=== PATIENT | female | born 1945 | race African-American/Black ===

== ENCOUNTER 2017-05-28 12:12 | Emergency (ER) | payer MEDICARE, OTHER ==
--- NOTE | 2017-05-28 13:22 | ULT ---
LEFT LOWER EXTREMITY VENOUS DOPPLER: HISTORY: Pain. COMPARISON: Left lower extremity venous Doppler 10/28/15. FINDINGS: Real-time, lindquist scale, color Doppler with spectral analysis of the left lower extremity venous system was performed through the common femoral, femoral, proximal portion of greater saphenous and deep fe moral veins as well as popliteal and posterior tibial veins. Normal flow, augmentation, and compression. IMPRESSION: No deep venous thrombosis of the left lower extremity. POS: KAITLIN
== END 2017-05-28 13:50 | disposition home or self-care (01) ==
LOC: SCSER 12:12
DX: M79.662 Pain in left lower leg (principal); E78.5 Hyperlipidemia, unspecified; E03.9 Hypothyroidism, unspecified; I10 Essential (primary) hypertension; Z79.899 Other long term (current) drug therapy

== ENCOUNTER 2017-11-13 11:11 | Outpatient (CLI) | payer MEDICARE | END 2017-11-13 11:12 | disposition home or self-care (01) | LOC: BICMAMMO 11:11 | PROVIDERS: ATTEND Physician Assistant | DX: Z12.31 Encounter for screening mammogram for malignant neoplasm of breast (principal) | CPT/HCPCS: 77063; 77067 ==

== ENCOUNTER 2018-03-11 00:21 | Observation (INO) | payer MEDICARE ==
[2018-03-11] MEDS ORDERED: Dexamethasone 10 MG/ML VIAL ONE (00:34)
[2018-03-11] MEDS ORDERED: Famotidine/PF 20 mg/2ml Vial ONE (00:34)
[2018-03-11] MEDS ORDERED: diphenhydrAMINE 50 MG/ML VIAL IVP SCH (00:45)
[2018-03-11 01:07] LABS: INR-International Normal Ratio 0.9; PTT 30.2 SEC (22.9-36.1); Prothrombin Time 12.1 SEC (12.0-14.7)
[2018-03-11 01:19] LABS: #Eosinphils 0.1 thou/uL (0.0-0.7); #Lymphocytes 2.2 thou/uL (1.20-3.40); #Monocytes 0.8 thou/uL (0.11-0.59); #Neutrophils 5.6 thou/uL (1.40-6.50); %Basophils 0.6 % (0.0-1.0); %Eosinophils 1.5 % (0.0-10.0); %Lymphocytes 25.2 % (21.0-51.0); %Monocytes 9.2 % (0.0-10.0); %Neutrophils 63.5 % (42.0-75.0); Anisocytosis SLIGHT = 6-15 cells (100X) (0-5/hpf); Elliptocytes SLIGHT = 2-5 cells (100X) (0-1/hpf); Hemoglobin 12.5 g/dL (12.0-16.0); MDiff Complete? YES; Mean Corpuscular HGB CONC 30.8 g/dL (32.0-36.0); Mean Corpuscular Hemoglobin 21.2 pg (27.0-31.0); Mean Corpuscular Volume 68.7 fL (78.0-98.0); Mean Platelet Volume 6.1 fL (7.4-10.4); Microcytosis SLIGHT = 6-15 cells (100X) (0-5/hpf); Platelet Count 261 thou/uL (130-400); RBC Distribution Width 17.9 % (11.5-14.5); Red Blood Cell (RBC) Count 5.88 mill/uL (4.20-5.40); White Blood Cell (WBC) Count 8.8 thou/uL (4.8-10.8)
[2018-03-11 01:37] LABS: ALT (SGPT) Less than 7 U/L (8-55); AST (SGOT) 12 U/L (5-34); Alkaline Phosphatase 53 U/L (40-150); Anion Gap 12 mmol/L (10-20); BUN (Urea Nitrogen) 17 mg/dL (9.8-20.1); Bilirubin, Total 0.3 mg/dL (0.2-1.2); Calc. Creatinine Clearance 0 mL/min (70-130); Calcium 9.5 mg/dL (7.8-10.44); Carbon Dioxide 27 mmol/L (23-31); Chloride 106 mmol/L (98-107); Estimated GFR-MDRD 70; Globulin 2.8 g/dL (2.4-3.5); Glucose 83 mg/dL (83-110); Protein, Total 6.8 g/dL (6.0-8.3); Sodium 141 mmol/L (136-145)
[2018-03-11] MEDS ORDERED: Ondansetron HCl/PF 4 MG/2 ML Vial IVP PRN (02:56)
[2018-03-11 03:23] LABS: Lavender RECEIVED; Red RECEIVED
[2018-03-11] MEDS ORDERED: Dextrose 50% Abboject 50 ML SYRINGE SLOW IVP PRN (03:26)
[2018-03-11] MEDS ORDERED: Dextrose 5% in Water 1,000 ML IV PRN (03:26)
[2018-03-11 04:05] VITALS: BMI 43.7
[2018-03-11] MEDS: Acetaminophen 325 MG TAB PO PRN ×2 (04:12→09:55)
--- NOTE | 2018-03-11 04:22 | HP ---
CHIEF COMPLAINT: "My lip is swollen." HISTORY OF PRESENT ILLNESS: This is a 73-year-old female with past medical history of angioedema, bi lateral pulmonary embolism, left leg deep vein thrombosis, history of hypertension, hyperlipidemia, h ypothyroidism, asthma, presenting with upper lip swollen and edema. Per the patient, she went to [facility] 2 days prior to her admission and patient states that she ate some crab and some fish at [facility], but per the patient, she did not have any reaction and on the day of admission, patient stated that she woke up and noted that she had upper lip edema and swelling and patient was starting to feel like this was one of her episodes of angioedema, so the patient took 2 doses of Benadryl. T he patient stated that she has not used anything different in the past couple of days. The patient h as not changed her medications in the past couple of days as well. The patient states that she tends to have this angioedema every now and then. Per the patient and her records in 2012, the patient aranda d facial edema and on 09/21/2015, patient had severe acute angioedema with respiratory complication, needing a trach and on 09/15/2016, patient also had another episode of angioedema in the throat of [facility]. Patient states that angioedema runs through her family, her nephew takes miguelina nopril, he gets angioedema and states that also the mother tends to also get angioedema as well. Per the patient, currently she is not having any difficulty with her breathing. She is not having any s hortness of breath and any tongue swelling or itchiness in the throat. Patient states that she is fe eling well and after she took 2 dose of Benadryl, everything started to resolve. REVIEW OF SYSTEMS: Positive for upper lip swollen, otherwise as documented in the HPI, all other sys tems were reviewed and were negative. PAST MEDICAL HISTORY: Bilateral pulmonary embolism in 2016, deep venous thrombosis, status post Xare lto, history of anemia, hypertension, hyperlipidemia, hypothyroidism, history of angioedema, diabetes mellitus type 2, asthma, morbid obesity. FAMILY HISTORY: Family history of angioedema. PAST SURGICAL HISTORY: Small-bowel obstruction in 2016, status post tracheostomy in the past. SOCIAL HISTORY: The patient denies ethanol use, smoking, or illicit drug use. Patient is a retired teacher. There are 7 sisters all together. ALLERGIES: The patient is allergic to CODEINE, SHELLFISH, and PROMETHAZINE. MEDICATIONS: The patient is on levothyroxine 100 mcg, fluvastatin, metoprolol XL 50 mg, glipizide 5 mg, Flexeril 10 mg. PHYSICAL EXAMINATION: VITAL SIGNS: Blood pressure is 168/97, heart rate is 70, respiratory rate of 18, temperature of 98.1 , O2 sat is 97 on room air. GENERAL: Patient is speaking in full sentences, does not appear to be in any distress. The patient is maintaining her airway, alert and oriented x3. HEENT: Normocephalic, atraumatic. Pupils are equally round and reactive to light. Extraocular move ments are intact. No scleral icterus. Mucous membranes are moist. NECK: Supple. No JVDs. No edema noted at the neck. No erythema, no rashes. Patient do have swoll en upper lip. LUNGS: Clear to auscultation bilaterally. No wheezing, no rales, no rhonchus appreciated. CARDIOVASCULAR: Positive S1, S2. Regular rate and rhythm. No murmurs, no gallops, no rubs apprecia myla. ABDOMEN: Nondistended, nontender. Positive bowel sounds in all quadrants. No ecchymosis, no masses palpated. EXTREMITIES: The patient has 5/5 upper extremity strength and 5/5 lower extremity strength, good pul ses bilaterally in upper and lower extremities. No edema noted. NEUROLOGIC: Cranial nerves II through XII grossly intact. No neurologic deficit noted. PSYCHIATRIC: Normal affect. Alert and oriented x3. SKIN: Warm, dry, and intact. Patient's lip swelling. There are no rashes noted. LABORATORY DATA: Sodium 141, potassium is 4.0, chloride 106, carbon dioxide 27, anion gap of 12, BUN is 17, creatinine is 0.94, glucose of 83, AST 12, ALT less than 7. CBC: WBC is 8.8, hematocrit is 40.4, hemoglobin of 12.5, MCV is 68.7, RDW of 17.9, PTT is 30.2, INR is 0.9. ASSESSMENT AND PLAN: This is a 73-year-old female with past medical history significant for micaela figueredo, has been admitted for; 1. Angioedema of the lip. At this point, the patient has received Benadryl and steroids. We will m onitor the patient on telemetry floor. The patient does not appear to be in any distress at this minnie e. There was no edema noted in the throat and the patient has good airway. Upon reviewing charts fr om the past, the patient do have a CRP that was 1.23, C3 level that was 191, and C4 level of 46, and C1 esterase function was 107, which rules out hereditary angioedema. Therefore, since patient is hav ing recurrent histories of angioedema and patient has family history of angioedema. We are suspectin g that the patient probably do have idiopathic angioedema. Since the patient's workup in the past aranda ve not shown the patient do have hereditary angioedema. At this point, we have encouraged the patien t to follow up with director drug safety for further workup for any allergic reactions and also for patient t o be managed outpatient for her history of recurrent angioedema. At this point, we will continue sup portive care. We will continue to monitor the patient. 2. Diabetes mellitus type 2, controlled. We will continue patient on insulin sliding scale. 3. Hyperlipidemia. Currently, we are going to hold the patient's home medication. We will start pa tient medications once the patient's medications have been verified. 4. History of hypertension. We will continue patient on home medications once it is confirmed and v erified. 5. Hypothyroidism. We will start patient on levothyroxine. 6. Deep venous thrombosis and gastrointestinal prophylaxis. We will encourage ambulation, sequentia l compression devices. We will give Pepcid for gastrointestinal prophylaxis.
[2018-03-11] MEDS: Levothyroxine Sodium 100 MCG TAB PO SCH (06:01)
[2018-03-11] MEDS ORDERED: Enoxaparin Sodium 40 MG/0.4 ML SYRINGE SC SCH (09:00)
[2018-03-11] MEDS ORDERED: predniSONE 20 MG TAB PO SCH (09:00)
[2018-03-11] MEDS: diphenhydrAMINE 25 MG CAP PO SCH ×3 (09:55→20:39)
[2018-03-11] MEDS: Famotidine 20 MG TAB PO SCH ×2 (09:55→20:40)
[2018-03-11] MEDS: HumaLOG 300 UNITS/3 ML VIAL SC PRN ×2 (11:45→20:41)
--- NOTE | 2018-03-11 17:51 | CON ---
DATE OF CONSULTATION: 03/11/2018 SERVICE: Pulmonary Medicine. REASON FOR CONSULTATION: Angioedema. HISTORY OF PRESENT ILLNESS: Patient is a 73-year-old -[place] female who was going through multiple life stressors currently. Either way, she was in her usual state of health when she had the abrupt onset of changes in the mouth. She started feeling upper lip swelling. She presented to the Emergency Department because of her history of severe angioedema requiring tracheostomy. She denies any current fevers, chills, nausea, vomiting or chest discomfort. She already feels that the lip swelling is improving to some degree. She has been on antihistamines, and steroids starting last night. PAST MEDICAL HISTORY: 1. Pulmonary embolism, bilateral. 2. History of deep venous thrombosis. 3. Hypertension. 4. Dyslipidemia. 5. Hypothyroidism. 6. Type 2 diabetes mellitus. 7. Morbid obesity. 8. Angioedema. PAST SURGICAL HISTORY: 1. Small-bowel obstruction in 2016. 2. History of tracheostomy, status post decannulation in 2016 for severe angioedema event. SOCIAL HISTORY: Negative for alcohol, tobacco or illicit drug use. She has no exposure to chemicals, dust asbestos or tuberculosis. FAMILY HISTORY: Positive for angioedema. ALLERGIES: Include CODEINE, SHELLFISH, PHENERGAN. MEDICATIONS: List of her inpatient medications were reviewed. No specific updates were made at this time. REVIEW OF SYSTEMS: General, head, ears, eyes, nose, throat, cardiovascular, respiratory, GI, , musculoskeletal, neurologic and skin is negative except as mentioned in the HPI. PHYSICAL EXAMINATION: VITAL SIGNS: Afebrile, pulse 81, blood pressure 147/67, respirations 18, saturation 97% on room air. GENERAL: The patient is awake, alert, no apparent distress. LUNGS: Excellent air entry. There is no prolonged expiratory phase, wheezing, rhonchi, or crackles present. HEENT: Normocephalic, atraumatic. Sclerae are white, conjunctivae pink. Oral mucosa is moist without lesions. I see no evidence of swollen tongue, lips, or posterior oropharynx. HEART: Normal rate, regular. ABDOMEN: Soft, nontender, nondistended. Bowel sounds are positive. MUSCULOSKELETAL: No cyanosis or clubbing. There is no pitting in the bilateral lower extremities. NEUROLOGIC: Grossly nonfocal. LABORATORY DATA: WBC 8.8, hemoglobin 12.5, platelets 261,000. INR was 0.9. Basic metabolic profile and liver function studies are unremarkable. CRP 1.07, minimally elevated. ASSESSMENT: 1. Angioedema without hypotension, resolving. 2. History of deep venous thrombosis/pulmonary embolus, status post full course of anticoagulation. DISCUSSION AND PLAN: At this point, the patient essentially has returned to baseline. From my perspective, she is stable for transition out of the hospital. She has multiple life stressors that she feels may have contributed to this presentation. On discharge from the hospital, she will need to follow up with her load planner. Pulmonary will follow if she remains inhouse, but from my perspective she will be a candidate for transition home tomorrow. VESTA
[2018-03-11] MEDS ORDERED: HumaLOG 300 UNITS/3 ML VIAL SC PRN (22:43)
[2018-03-11] MEDS ORDERED: glipiZIDE 5 MG TAB PO SCH (23:15)
[2018-03-12] MEDS: Levothyroxine Sodium 100 MCG TAB PO SCH (06:00)
[2018-03-12] MEDS ORDERED: glipiZIDE 5 MG TAB PO SCH (07:30)
[2018-03-12] MEDS ORDERED: predniSONE 20 MG TAB PO SCH (08:00)
[2018-03-12] MEDS: Famotidine 20 MG TAB PO SCH (08:04)
[2018-03-12] MEDS: diphenhydrAMINE 25 MG CAP PO SCH ×2 (08:04→14:16)
[2018-03-12] MEDS: metFORMIN 500 MG TAB PO SCH ×2 (08:04→11:43)
[2018-03-12] MEDS ORDERED: Labetalol HCl 100 MG/20 ML VIAL SLOW IVP PRN (08:34)
[2018-03-12] MEDS ORDERED: cloNIDine 0.1 MG TAB PO PRN (08:34)
[2018-03-12] MEDS ORDERED: Aspirin 81 mg Enteric Coated Tablet PO SCH (09:00)
[2018-03-12] MEDS ORDERED: Amlodipine 5 MG TAB PO SCH ×2 (11:15→21:00)
[2018-03-12 11:59] VITALS: TEMP 97.9
[2018-03-12 12:55] VITALS: BP 153/80
[2018-03-12] MEDS: Acetaminophen 325 MG TAB PO PRN (14:17)
--- NOTE | 2018-03-12 17:45 | PRG ---
DATE OF SERVICE: 03/12/2018 SERVICE: Pulmonary Medicine. INTERVAL HISTORY: The patient is doing absolutely wonderful from a respiratory standpoint. Denies a ny current chest pain, nausea, vomiting, fevers or chills. Otherwise, there has been no interval korey nge to her condition. She indicates the lip swelling is no longer present. She is certainly breathi ng comfortably and did not have any events overnight. PHYSICAL EXAMINATION: VITAL SIGNS: Afebrile, pulse 65, blood pressure 166/87, respirations 20, saturation 95% on room air. GENERAL: The patient is awake and alert, in no apparent distress. LUNGS: Excellent air entry. There is no prolonged expiratory phase or wheezing present. HEART: Normal rate, regular. ABDOMEN: Soft, nontender, nondistended. Bowel sounds are positive. MUSCULOSKELETAL: No cyanosis or clubbing. There is no pitting in the bilateral lower extremities. NEUROLOGIC: Grossly nonfocal. LABORATORY DATA: Blood sugars ranged from 73 to 308. ASSESSMENT: 1. Angioedema without hypotension. 2. History of deep vein thrombosis/pulmonary embolism, status post full course of anticoagulation. DISCUSSION AND PLAN: The patient remains stable for transition out of the hospital. At this point, she has no further requirements for inpatient Pulmonary or Critical Care opinion and I will sign off. She will need follow up with her beef grinder in the outpatient setting. She will need an appropriate duration of steroids and antihistamines.
--- NOTE | 2018-03-13 13:58 | DIS ---
DATE OF DISCHARGE: 03/12/2018 DISCHARGE DISPOSITION: Home. FOLLOWUP: 1. Follow up with Kia Plasencia in 1 week. 2. Follow up with car spotter, Dr. Osmar Loera, in 1 week. ALLERGIES: The patient is allergic to CODEINE, PHENERGAN, and SHELLFISH. The patient was seen and examined on the day of discharge. Denies any new complaints. No chest pain , shortness of breath, palpitations. Facial swelling has significantly improved. BRIEF HOSPITAL COURSE: The patient is a 73-year-old female with angioedema in the past, presented to the hospital with lip swelling. Please refer to the history and physical dated 03/11/[address] Chelsi stallings for further details. The patient was admitted to the hospital with a diagnosis of angioedema of the lip. She was started on H1 and H2 blockers along with steroids. She showed good improvement. The patient was evaluated b y Pulmonary, Dr. Mike. She did well overnight. She has been cleared by Dr. Mike for discharge . She was advised to follow up with her primary car spotter, Dr. Loera, as outpatient. FINAL DIAGNOSES: 1. Angioedema. 2. Diabetes mellitus, type 2. 3. Hypertension. 4. Hyperlipidemia. 5. Hypothyroidism. 6. Morbid obesity with a BMI of 43.6. 7. Chronic kidney disease, stage 2. DIAGNOSTIC TESTS: CRP 1.07, creatinine 0.94, hemoglobin 12.5.
== END 2018-03-12 15:55 | disposition home or self-care (01) ==
LOC: ERS 00:21 → 2NO 01:32 → INTOOBSV 01:32
PROVIDERS: ADMIT Internal Medicine; ATTEND Internal Medicine
DX: T78.3XXA Angioneurotic edema, initial encounter (principal); E78.5 Hyperlipidemia, unspecified; E03.9 Hypothyroidism, unspecified; I12.9 Hypertensive chronic kidney disease with stage 1 through stage 4 chronic kidney disease, or unspecified chronic kidney disease; E11.22 Type 2 diabetes mellitus with diabetic chronic kidney disease; N18.2 Chronic kidney disease, stage 2 (mild); E66.01 Morbid (severe) obesity due to excess calories; Z68.41 Body mass index [BMI] 40.0-44.9, adult; Z88.5 Allergy status to narcotic agent; Z91.013 Allergy to seafood; Z79.84 Long term (current) use of oral hypoglycemic drugs; Z79.899 Other long term (current) drug therapy
CPT/HCPCS: 80053; 82962 ×2; 85025; 85610; 85730; 86140; 86850; 86900; 86901; 96372; 96374; 96375; 99284; G0378; 36415; 36416; J1100; J1200; J1650; J7506; S0028

== ENCOUNTER 2018-05-14 10:53 | Emergency (ER) | payer MEDICARE ==
[2018-05-14 15:16] LABS: Anion Gap 11 mmol/L (10-20); BUN (Urea Nitrogen) 13 mg/dL (9.8-20.1); Calc. Creatinine Clearance 0 mL/min (70-130); Calcium 9.4 mg/dL (7.8-10.44); Carbon Dioxide 28 mmol/L (23-31); Chloride 105 mmol/L (98-107); Estimated GFR-MDRD 87; Glucose 76 mg/dL (83-110); Potassium 4.2 mmol/L (3.5-5.1); Sodium 140 mmol/L (136-145)
--- NOTE | 2018-05-16 13:54 | EKG ---
Test Reason : Blood Pressure : / mmHG Vent. Rate : 065 BPM Atrial Rate : 065 BPM P-R Int : 226 ms QRS Dur : 076 ms QT Int : 392 ms P-R-T Axes : 000 -43 022 degrees QTc Int : 407 ms Sinus rhythm with 1st degree A-V block Left axis deviation Abnormal ECG Confirmed by JOAO NAIK ([id number]), material expeditor FREDO CASTILLO ([id number]) on 05/16/2018 1:54:28 PM Referred By: Confirmed By:JOAO NAIK
== END 2018-05-14 15:39 | disposition home or self-care (01) ==
LOC: ERS 10:53
DX: I10 Essential (primary) hypertension (principal); E78.5 Hyperlipidemia, unspecified; E03.9 Hypothyroidism, unspecified; Z79.899 Other long term (current) drug therapy
CPT/HCPCS: 36415; 80048; 84484; 93005

== ENCOUNTER 2019-03-25 11:39 | Outpatient (CLI) | payer MEDICARE ==
--- NOTE | 2019-03-25 12:37 | MMO ---
Bilateral MAMMO Bilat Screen [facility]. CLINICAL HISTORY: Patient is 74 years old and is seen for screening. The patient has no family history of breast cancer. The patient has no personal history of cancer. VIEWS: The views performed were: bilateral craniocaudal; bilateral craniocaudal with tomosynthesis; bilateral mediolateral oblique; and bilateral mediolateral oblique with tomosynthesis. FILMS COMPARED: The present examination has been compared to prior imaging studies performed at [facility] on 01/14/2013, 06/20/2014, 07/27/2015 and 11/13/2017. This study has been interpreted with the assistance of computer-aided detection. MAMMOGRAM FINDINGS: The breasts are almost entirely fat. There are no suspicious masses, suspicious calcifications, or new areas of architectural distortion. IMPRESSION: THERE IS NO MAMMOGRAPHIC EVIDENCE OF MALIGNANCY. A ROUTINE FOLLOW-UP MAMMOGRAM IN 1 YEAR IS RECOMMENDED. THE RESULTS OF THIS EXAM WERE SENT TO THE PATIENT. ACR BI-RADS Category 1 - Negative MAMMOGRAPHY NOTE: 1. A negative mammogram report should not delay a biopsy if a dominant of clinically suspicious mass is present. 2. Approximately 10% to 15% of breast cancers are not detected by mammography. 3. Adenosis and dense breasts may obscure an underlying neoplasm. Reported by: DEMARCUS MILLS MD Electonically Signed: [id number]
== END 2019-03-25 11:40 | disposition home or self-care (01) ==
LOC: BICMAMMO 11:39
PROVIDERS: ATTEND Physician Assistant
DX: Z12.31 Encounter for screening mammogram for malignant neoplasm of breast (principal)
CPT/HCPCS: 77063; 77067

== ENCOUNTER 2019-05-07 13:06 | Emergency (ER) | payer MEDICARE ==
[2019-05-07] MEDS ORDERED: predniSONE 20 MG TAB ONE (13:45)
== END 2019-05-07 15:09 | disposition home or self-care (01) ==
LOC: ERS 13:06
DX: T78.40XA Allergy, unspecified, initial encounter (principal); E78.5 Hyperlipidemia, unspecified; E78.00 Pure hypercholesterolemia, unspecified; I10 Essential (primary) hypertension; E03.9 Hypothyroidism, unspecified; Z79.899 Other long term (current) drug therapy
CPT/HCPCS: 99283; J7512

== ENCOUNTER 2020-06-13 13:56 | Outpatient (CLI) | payer MEDICARE ==
[~2020-06-13 13:56] MED LIST: Iopamidol 370 76% 100 ML VIAL ONE
--- NOTE | 2020-06-13 15:33 | CT ---
CT ABDOMEN AND PELVIS WITH ORAL AND IV CONTRAST: 06/13/20 HISTORY: Left lower quadrant pain. Abdominal pain, periumbilical. Constipation. Perianal pain. Umbilical herni a. The lung bases are unremarkable. The liver, spleen, pancreas and adrenal glands are normal. No calcif ied gallstones are seen. Bilateral renal cysts are again seen. No free air, free fluid or lymphadenopathy are seen in the abdomen or pelvis. The patient is post hys terectomy. There are vascular calcifications without evidence of aneurysmal dilatation of the abdomin al aorta. There are degenerative changes in the spine. The small bowel loops are not abnormally dilated. There are postop changes in the anterior abdominal wall. A lower anterior abdominal wall hernia is seen containing fat and unobstructed loop of transver se colon. IMPRESSION: 1. Bilateral renal cysts. 2. Lower anterior abdominal wall hernia containing fat and unobstructed loop of transverse colon. POS: OFF
== END 2020-06-13 13:57 | disposition home or self-care (01) ==
LOC: BICCT 13:56
PROVIDERS: ATTEND Physician Assistant Medical
DX: K42.9 Umbilical hernia without obstruction or gangrene (principal); R10.32 Left lower quadrant pain; R10.33 Periumbilical pain; K59.00 Constipation, unspecified; R10.2 Pelvic and perineal pain; N28.1 Cyst of kidney, acquired; K43.9 Ventral hernia without obstruction or gangrene
CPT/HCPCS: 74177; 82565

== ENCOUNTER 2020-10-19 11:10 | Outpatient (CLI) | payer MEDICARE | END 2020-10-19 11:11 | disposition home or self-care (01) | LOC: BICMAMMO 11:10 | PROVIDERS: ATTEND Physician Assistant | DX: Z12.31 Encounter for screening mammogram for malignant neoplasm of breast (principal) | CPT/HCPCS: 77063; 77067 ==

== ENCOUNTER 2020-11-02 15:17 | Emergency (ER) | payer MEDICARE ==
[2020-11-02] MEDS ORDERED: EPINEPHrine 1 MG/ML VIAL ONE (15:51)
[2020-11-02] MEDS ORDERED: Famotidine/PF 20 mg/2ml Vial ONE (15:51)
[2020-11-02] MEDS ORDERED: Tranexamic Acid 1,000 MG/10 ML VIAL ONE (15:51)
[2020-11-02] MEDS ORDERED: methylPREDNISolone Sod Succ/PF 125 MG/2 ML VIAL ONE (15:51)
[2020-11-02 16:36] LABS: #Basophils 0.1 thou/uL (0.0-0.2); #Eosinphils 0.1 thou/uL (0.0-0.7); #Lymphocytes 4.4 thou/uL (1.20-3.40); #Monocytes 1.1 thou/uL (0.11-0.59); #Neutrophils 6.3 thou/uL (1.40-6.50); %Basophils 0.8 % (0.0-1.0); %Eosinophils 1.1 % (0.0-10.0); %Lymphocytes 36.4 % (21.0-51.0); %Monocytes 9.1 % (0.0-10.0); %Neutrophils 52.6 % (42.0-75.0); Hemoglobin 13.9 g/dL (12.0-16.0); Mean Corpuscular HGB CONC 30.9 g/dL (32.0-36.0); Mean Corpuscular Hemoglobin 21.5 pg (27.0-31.0); Mean Corpuscular Volume 69.4 fL (78.0-98.0); Mean Platelet Volume 6.9 fL (7.4-10.4); Platelet Count 294 thou/uL (130-400); RBC Distribution Width 19.2 % (11.5-14.5); Red Blood Cell (RBC) Count 6.46 mill/uL (4.20-5.40)
[2020-11-02 16:54] LABS: ALT (SGPT) 8 U/L (8-55); AST (SGOT) 12 U/L (5-34); Albumin 4.1 g/dL (3.4-4.8); Alkaline Phosphatase 67 U/L (40-110); Anion Gap 12 mmol/L (10-20); BUN (Urea Nitrogen) 15 mg/dL (9.8-20.1); Bilirubin, Total 0.3 mg/dL (0.2-1.2); Calc. Creatinine Clearance 0 mL/min (70-130); Calcium 9.6 mg/dL (7.8-10.44); Carbon Dioxide 31 mmol/L (23-31); Chloride 102 mmol/L (98-107); Globulin 3.2 g/dL (2.4-3.5); Glucose 120 mg/dL (83-110); Potassium 4.6 mmol/L (3.5-5.1); Protein, Total 7.3 g/dL (5.8-8.1); Sodium 140 mmol/L (136-145)
[2020-11-02 16:54] LABS: Anisocytosis SLIGHT = 6-15 cells (100X) (0-5/hpf); Hypochromia SLIGHT = 6-15 cells (100X) (0-5/hpf); MDiff Complete? YES; Microcytosis SLIGHT = 6-15 cells (100X) (0-5/hpf); Ovalocytes SLIGHT = 2-5 cells (100X) (0-1/hpf); Platelet Morphology Comment Appears Adequate; Polychromasia SLIGHT = 2-3 cells (100X) (0-2/hpf)
== END 2020-11-02 23:13 | disposition home or self-care (01) ==
LOC: ERS 15:17
DX: D84.1 Defects in the complement system (principal); E78.00 Pure hypercholesterolemia, unspecified; I10 Essential (primary) hypertension; E03.9 Hypothyroidism, unspecified; E78.5 Hyperlipidemia, unspecified; Z79.82 Long term (current) use of aspirin; Z79.84 Long term (current) use of oral hypoglycemic drugs; Z79.899 Other long term (current) drug therapy
CPT/HCPCS: 36430; 80053; 85025; 86850; 86900; 86901; 96365; 96366; 96372; 96375; 99284; J0171; P9059; 36415; J2930; S0028

== ENCOUNTER 2021-10-16 14:17 | Outpatient (CLI) | payer MEDICARE | END 2021-10-16 14:18 | disposition home or self-care (01) | LOC: BICMAMMO 14:17 | PROVIDERS: ATTEND Registered Nurse | DX: Z13.820 Encounter for screening for osteoporosis (principal); Z78.0 Asymptomatic menopausal state | CPT/HCPCS: 77080 ==

== ENCOUNTER 2022-01-13 12:32 | Emergency (ER) | payer MEDICARE ==
[2022-01-13 14:01] LABS: #Eosinphils 0.3 thou/uL (0.0-0.7); #Lymphocytes 2.1 thou/uL (1.20-3.40); #Monocytes 0.6 thou/uL (0.11-0.59); #Neutrophils 5.9 thou/uL (1.40-6.50); %Basophils 0.3 % (0.0-1.0); %Eosinophils 3.2 % (0.0-10.0); %Lymphocytes 23.3 % (21.0-51.0); %Monocytes 7.2 % (0.0-10.0); %Neutrophils 65.9 % (42.0-75.0); Hemoglobin 13.2 g/dL (12.0-16.0); Mean Corpuscular HGB CONC 31.5 g/dL (32.0-36.0); Mean Corpuscular Hemoglobin 22.2 pg (27.0-31.0); Mean Corpuscular Volume 70.4 fL (78.0-98.0); Mean Platelet Volume 5.9 fL (7.4-10.4); Platelet Count 278 thou/uL (130-400); RBC Distribution Width 19.1 % (11.5-14.5); Red Blood Cell (RBC) Count 5.96 mill/uL (4.20-5.40); White Blood Cell (WBC) Count 8.9 thou/uL (4.8-10.8)
[2022-01-13] MEDS ORDERED: Iopamidol-370 76% 500 ML 1 ML ONE (14:05)
[2022-01-13 14:15] LABS: Anisocytosis SLIGHT = 6-15 cells (100X) (0-5/hpf); Hypochromia SLIGHT = 6-15 cells (100X) (0-5/hpf); MDiff Complete? YES; Microcytosis SLIGHT = 6-15 cells (100X) (0-5/hpf); Ovalocytes SLIGHT = 2-5 cells (100X) (0-1/hpf); Platelet Morphology Comment Appears Adequate; Polychromasia SLIGHT = 2-3 cells (100X) (0-2/hpf)
[2022-01-13 14:24] LABS: ALT (SGPT) 7 U/L (8-55); AST (SGOT) 12 U/L (5-34); Alkaline Phosphatase 62 U/L (40-110); Anion Gap 14 mmol/L (10-20); BUN (Urea Nitrogen) 13 mg/dL (9.8-20.1); Bilirubin, Total 0.3 mg/dL (0.2-1.2); Calc. Creatinine Clearance 0 mL/min (70-130); Calcium 9.4 mg/dL (7.8-10.44); Carbon Dioxide 29 mmol/L (23-31); Chloride 102 mmol/L (98-107); Estimated GFR 75; Globulin 3.3 g/dL (2.4-3.5); Glucose 93 mg/dL (83-110); Potassium 4.3 mmol/L (3.5-5.1); Protein, Total 7.3 g/dL (5.8-8.1); Sodium 141 mmol/L (136-145)
== END 2022-01-13 16:36 | disposition home or self-care (01) ==
LOC: ERS 12:32
DX: I82.402 Acute embolism and thrombosis of unspecified deep veins of left lower extremity (principal); E78.5 Hyperlipidemia, unspecified; E78.00 Pure hypercholesterolemia, unspecified; I10 Essential (primary) hypertension; E03.9 Hypothyroidism, unspecified; R73.03 Prediabetes; Z79.84 Long term (current) use of oral hypoglycemic drugs; Z79.899 Other long term (current) drug therapy
CPT/HCPCS: 36415; 71045; 71275; 80053; 83880; 84484; 85025; 93005; Q9967

== ENCOUNTER 2022-07-21 01:06 | Emergency (ER) | payer MEDICARE ==
[2022-07-21 02:19] LABS: Hemoglobin 12.5 g/dL (12.0-16.0); Mean Corpuscular HGB CONC 31.3 g/dL (32.0-36.0); Mean Corpuscular Hemoglobin 21.8 pg (27.0-31.0); Mean Corpuscular Volume 69.5 fl (78.0-98.0); Mean Platelet Volume 6.5 fL (7.4-10.4); Platelet Count 243 10x3/uL (130-400); RBC Distribution Width 17.9 % (11.5-14.5); Red Blood Cell (RBC) Count 5.72 mill/uL (4.20-5.40); White Blood Cell (WBC) Count 9.4 10x3/uL (4.8-10.8)
[2022-07-21 02:31] LABS: ALT (SGPT) Less than 7 U/L (8-55); AST (SGOT) 13 U/L (5-34); Albumin 3.9 g/dL (3.4-4.8); Alkaline Phosphatase 53 U/L (40-110); Anion Gap 12 mmol/L (10-20); BUN (Urea Nitrogen) 14 mg/dL (9.8-20.1); Bilirubin, Total 0.4 mg/dL (0.2-1.2); Calc. Creatinine Clearance 0 mL/min (70-130); Calcium 8.8 mg/dL (7.8-10.44); Carbon Dioxide 27 mmol/L (23-31); Chloride 105 mmol/L (98-107); Estimated GFR 72; Globulin 2.7 g/dL (2.4-3.5); Glucose 91 mg/dL (83-110); Potassium 4.3 mmol/L (3.5-5.1); Protein, Total 6.6 g/dL (5.8-8.1); Sodium 140 mmol/L (136-145)
[2022-07-21 02:44] LABS: #Eosinphils 0.2 thou/uL (0.0-0.7); #Lymphocytes 2.2 thou/uL (1.20-3.40); #Monocytes 0.8 thou/uL (0.11-0.59); #Neutrophils 6.1 thou/uL (1.40-6.50); %Basophils 0.5 % (0.0-1.0); %Eosinophils 2.1 % (0.0-10.0); %Lymphocytes 23.7 % (21.0-51.0); %Monocytes 8.6 % (0.0-10.0); %Neutrophils 65.1 % (42.0-75.0); Anisocytosis SLIGHT = 6-15 cells (100X) (0-5/hpf); Hypochromia SLIGHT = 6-15 cells (100X) (0-5/hpf); MDiff Complete? YES; Microcytosis SLIGHT = 6-15 cells (100X) (0-5/hpf); Ovalocytes SLIGHT = 2-5 cells (100X) (0-1/hpf); Platelet Morphology Comment Appears Adequate; Polychromasia SLIGHT = 2-3 cells (100X) (0-2/hpf)
== END 2022-07-21 02:49 | disposition home or self-care (01) ==
LOC: MERGE 01:06 → EDBD 01:06 → ERS 01:06
DX: M79.604 Pain in right leg (principal); E11.9 Type 2 diabetes mellitus without complications; E78.5 Hyperlipidemia, unspecified; I10 Essential (primary) hypertension; E03.9 Hypothyroidism, unspecified; Z79.01 Long term (current) use of anticoagulants; Z79.84 Long term (current) use of oral hypoglycemic drugs; Z79.899 Other long term (current) drug therapy
CPT/HCPCS: 36415; 80053; 85025

== ENCOUNTER 2023-04-23 10:36 | Outpatient (CLI) | payer MEDICARE | END 2023-04-23 10:37 | disposition home or self-care (01) | LOC: BICMAMMO 10:36 | PROVIDERS: ATTEND Registered Nurse | DX: Z12.31 Encounter for screening mammogram for malignant neoplasm of breast (principal) | CPT/HCPCS: 77063; 77067 ==

== ENCOUNTER 2023-07-31 06:55 | Day surgery (SDC) | payer MEDICARE ==
[2023-07-29 12:36] VITALS: BMI 40.4
[2023-07-31] MEDS ORDERED: Lidocaine 1% PF 5 ML VIAL ONE (07:56)
[2023-07-31] MEDS ORDERED: PROPOFOL 40 ML ONE (07:56)
[2023-07-31] MEDS ORDERED: Acetaminophen 325 MG TAB ONE (09:10)
== END 2023-07-31 09:24 | disposition home or self-care (01) ==
LOC: SDC 06:55
PROVIDERS: ATTEND Internal Medicine Gastroenterology
PROC: 0DJD8ZZ Inspection of Lower Intestinal Tract, Via Natural or Artificial Opening Endoscopic (ICD-10-PCS; principal; 2023-07-31)
DX: Z12.11 Encounter for screening for malignant neoplasm of colon (principal); K43.9 Ventral hernia without obstruction or gangrene; I82.402 Acute embolism and thrombosis of unspecified deep veins of left lower extremity; Z88.0 Allergy status to penicillin; Z88.5 Allergy status to narcotic agent; Z88.8 Allergy status to other drugs, medicaments and biological substances; Z91.013 Allergy to seafood; Z83.719 Family history of colon polyps, unspecified; Z79.01 Long term (current) use of anticoagulants
CPT/HCPCS: J2704